=== PATIENT | female | born 1965 | race Two or more races ===

== ENCOUNTER 2020-06-13 00:13 | Emergency (ER) | payer MEDICAID, OTHER ==
[~2020-06-13] VITALS: Ht 162.6 cm; Wt 92.5 kg
[2020-06-13 03:00] VITALS: BP 160/79
[2020-06-13] MEDS ORDERED: TETANUS-DIPTH-ACEL PERTUSSIS 0.5ML SYR Tdap IM ONE (04:00)
== END 2020-06-13 04:12 | disposition home or self-care (01) ==
LOC: ER 00:14
DX: S61.212A Laceration without foreign body of right middle finger without damage to nail, initial encounter (principal); J45.909 Unspecified asthma, uncomplicated; Z98.51 Tubal ligation status; Z88.0 Allergy status to penicillin; W22.8XXA Striking against or struck by other objects, initial encounter; Y93.89 Activity, other specified; Y92.89 Other specified places as the place of occurrence of the external cause; Y99.8 Other external cause status
CPT/HCPCS: 12001; 73140; 90471; 90715

== ENCOUNTER 2021-05-21 11:57 | Emergency (ER) | payer MEDICAID ==
[~2021-05-21] VITALS: Ht 162.6 cm; Wt 81.6 kg
[2021-05-21 14:25] VITALS: BP 164/92
== END 2021-05-21 17:54 | disposition left against medical advice (07) ==
LOC: EDBD 11:57 → ER 11:57
DX: R51.9 Headache, unspecified (principal); F41.9 Anxiety disorder, unspecified; R07.89 Other chest pain; Z53.21 Procedure and treatment not carried out due to patient leaving prior to being seen by health care provider
CPT/HCPCS: 93005

== ENCOUNTER 2021-09-02 16:25 | Emergency (ER) | payer MEDICAID ==
[~2021-09-02] VITALS: Ht 162.6 cm; Wt 88.5 kg
[2021-09-03 01:22] VITALS: BP 135/82
== END 2021-09-03 01:26 | disposition home or self-care (01) ==
LOC: ER 16:25
DX: S70.11XA Contusion of right thigh, initial encounter (principal); J45.909 Unspecified asthma, uncomplicated; F41.9 Anxiety disorder, unspecified; Z98.51 Tubal ligation status; W22.8XXA Striking against or struck by other objects, initial encounter; Y93.89 Activity, other specified; Y92.89 Other specified places as the place of occurrence of the external cause; Y99.8 Other external cause status
CPT/HCPCS: 93971

== ENCOUNTER 2022-08-01 22:31 | Emergency (ER) | payer MEDICAID ==
[~2022-08-01] VITALS: Ht 157.5 cm; Wt 84.4 kg
[2022-08-01 23:14] VITALS: BP 152/74
== END 2022-08-02 05:20 | disposition left against medical advice (07) ==
LOC: ER 22:31
DX: R23.4 Changes in skin texture (principal); R22.9 Localized swelling, mass and lump, unspecified; Z53.21 Procedure and treatment not carried out due to patient leaving prior to being seen by health care provider